=== PATIENT | female | born 1985 | race Caucasian/White ===

== ENCOUNTER 2017-12-15 07:36 | Day surgery (SDC) | payer MEDICAID ==
[2017-12-15] MEDS ORDERED: LR 1,000 ML IV ONE (07:57)
[2017-12-15] MEDS ORDERED: LIDOCAINE 1% 2 ML INJ ID PRN (07:57)
[2017-12-15] MEDS ORDERED: POTASSIUM IODIDE/IODINE (LUGOL'S SOLN) 500 ML MISC ONE ×2 (08:00)
[2017-12-15] MEDS ORDERED: LIDOCAINE 1% 300 MG/30 ML SDV ONE (08:30)
[2017-12-15] MEDS ORDERED: MONSELS-FERRIC SUBSULFATE 8 GM SDV TP ONE (08:30)
[2017-12-15] MEDS ORDERED: VASOPRESSIN 20 UNIT/ML VIAL ONE (08:30)
[2017-12-15] MEDS ORDERED: SILVER NITRATE APPLICATOR 1 APPL TP ONE (08:30)
[2017-12-15] MEDS ORDERED: ACETIC ACID IRR SOLN 0.25% 1,000 ML BTL ONE (08:31)
--- NOTE | 2017-12-15 08:38 | GHP ---
[f rep st] HISTORY AND PHYSICAL DATE OF ADMISSION: 12/15/2017 ADMITTING DIAGNOSES: Cervical intraepithelial neoplasia 2, moderate dysplasia. HISTORY OF PRESENT ILLNESS: Patient is a 32-year-old nulliparous female, who presents with a history of cervical dysplasia. She had an abnormal Pap smear showing ASCUS, high-risk HPV in July 2017. She then underwent a LEEP in October 2016 that showed JAIDA 2. Patient does have a history of a LEEP in 2006 at 20 years of age. She states followup Paps were normal. She is in a monogamous relationship. Denies any tobacco use. She is unsure if she wants children at this time. PAST OBSTETRIC HISTORY: Patient is nulliparous. PAST GYNECOLOGIC HISTORY: Age of menarche is 16. Cycles are every 25-30 days for 3-5 days. Light flow with heavy cramping. Patient does have a history of abnormal Pap smears, high-risk HPV, dysplasia with a LEEP in 2006. Patient did not receive Gardasil HPV vaccine. Denies exposure to any other sexually transmitted diseases. Currently using condoms, has used control pills and IUD in the past. PAST MEDICAL HISTORY: Asthma, Hipolito's, eczema, depression, anxiety. CURRENT MEDICATIONS: Adderall, Ativan, Ibuprofen, Synthroid 50 mcg, Xanax, and cyclobenzaprine as needed. ALLERGIES: Desflurane. PAST SURGICAL HISTORY: Includes a LEEP in 2006; Tonsillectomy and Adenoidectomy in 2003; Sinus surgery for deviated septum in 2014. FAMILY HISTORY: Mother and great grandmother with mental illness. Father and sister with thyroid disease. Maternal uncle had colon cancer in the 40s. Father with heart disease. SOCIAL HISTORY: The patient is in a monogamous relationship, lives with her fiancee. Denies any tobacco use. She drinks socially 3-5 drinks per week. Denies any illicit drug use. 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 REVIEW OF SYSTEMS: Ten-point review of systems negative. Pertinent positives noted in HPI. PHYSICAL EXAMINATION: On admission: VITAL SIGNS: Stable. Patient is afebrile. GENERAL: Well-nourished, well-developed female, alert and oriented x3. CARDIOVASCULAR: Regular rate and rhythm. LUNGS: Clear to auscultation bilaterally. PELVIC: Exam deferred. EXTREMITIES: Normal to inspection without calf tenderness. ASSESSMENT: Patient is a 32-year-old nulliparous female with history of dysplasia and loop electrical cautery excision of cervix, who presents with moderate dysplasia, cervical intraepithelial neoplasia 2. PLAN: 1. Discussed the procedure LEEP (loop electrical cautery excision of the cervix ). We discussed its limitations, nothing by mouth status, postop recovery including pelvic rest times 4 weeks. 2. Surgical consents were obtained. We discussed risks, benefits, alternatives including, but not limited to, bleeding, infection, risk of cervical stenosis, damage to surrounding organs including the vagina. 3. Patient understands all risks and wants to proceed with surgery at this time. 4. Antibiotics chronometer tester to operating room. 5. Sequential compression devices for deep vein thrombosis prophylaxis. /[id number]/MODL MTDD
--- NOTE | 2017-12-15 09:06 | PDANEPAE ---
ANE Past Medical History - Cardiovascular History Hx Hypertension: No Hx Arrhythmias: No Hx Chest Pain: No Hx Coronary Artery / Peripheral Vascular Disease: No Hx CHF / Valvular Disease: No Hx Palpitations: No - Pulmonary History Hx COPD: No Hx Asthma/Reactive Airway Disease: Yes Hx Recent Upper Respiratory Infection: No Hx Oxygen in Use at Home: No Hx Sleep Apnea: No Sleep Apnea Screening Result - Last Documented: Negative Pulmonary History Comment: MILD ASTHMA W/INHALER - Neurologic History Hx Cerebrovascular Accident: No Hx Seizures: No Hx Dementia: No - Endocrine History Hx Diabetes: Yes Hypothyroid: Yes Endocrine History Comment: ADRIAN'S - Renal History Hx Renal Disorders: No - Liver History Hx Hepatic Disorders: No - Neurological & Psychiatric Hx Hx Neurological and Psychiatric Disorders: Yes Neurological / Psychiatric History Comment: ADD/ADHD. ANXIETY - Cancer History Hx Cancer: No - Congenital Disorder History Hx Congenital Disorders: No - GI History Hx Gastrointestinal Disorders: No - Other Health History Other Health History: OCCAS ECZEMA - Chronic Pain History Chronic Pain: No - Surgical History Prior Surgeries: SINUS SURG. TONSILLECTOMY & ADENOIDECTOMY. PREVIOUS LEEP PROCEDURE 2005 ANE Review of Systems Review of Systems: - Exercise capacity METS (RN): 5 METS ANE Patient History - Allergies Allergies/Adverse Reactions: desflurane Allergy (Verified 12/08/17 17:22) Anaphylaxis - Home Medications Home Medications: Adderall 10 MG (*) 12/08/17 [Last Taken 12/13/17] Flexeril 10 MG (*) 12/08/17 [Last Taken 12/10/17] Herbals/Supplements -Info Only 12/08/17 [Last Taken 12/10/17] Ibuprofen 12/08/17 [Last Taken 2 Weeks Ago ~12/01/17] Synthroid 12/08/17 [Last Taken 12/15/17] Xanax 12/08/17 [Last Taken 3 Weeks Ago ~11/24/17] - NPO status NPO Since - Liquids (Date): 12/15/17 NPO Since - Liquids (Time): 07:00 NPO Since - Solids (Date): 12/14/17 NPO Since - Solids (Time): 23:30 - Smoking Hx Smoking Status: Never smoked - Family Anes Hx Family Hx Anesthesia Complications: NEG ANE Labs/Vital Signs - Vital Signs Blood Pressure: 97/60 Heart Rate: 61 Respiratory Rate: 18 O2 Sat (%): 96 Height: 172.72 cm Weight: 72.575 kg ANE Physical Exam - Airway Mallampati Score: Class 1 - ASA Status ASA Status: II ANE Anesthesia Plan Anesthesia Plan: GA w LMA Total IV Anesthesia: Yes
[2017-12-15] MEDS ORDERED: fentaNYL 100 MCG/2 ML INJ ONE ×2 (09:14→11:13)
[2017-12-15] MEDS ORDERED: MIDAZOLAM 2 MG/2 ML VIAL ONE (09:14)
[2017-12-15] MEDS ORDERED: PROPOFOL/EMULSION 500 MG/50 ML BOTTLE IV ONE (09:15)
[2017-12-15] MEDS ORDERED: PROPOFOL 200 MG/20 ML VIAL ONE (09:15)
[2017-12-15] MEDS ORDERED: ceFAZolin 2 GM/SWFI 2 GM/20 ML SYR IVP ONE (09:16)
[2017-12-15] MEDS ORDERED: ONDANSETRON 4 MG/2 ML VIAL ONE (09:46)
[2017-12-15] MEDS ORDERED: ceFAZolin 1 GM VIAL ONE ×2 (09:46)
[2017-12-15] MEDS ORDERED: METOCLOPRAMIDE 10 MG/2 ML VIAL ONE (09:47)
[2017-12-15] MEDS ORDERED: LIDOCAINE 2% JELLY 5 ML TUBE ONE (09:47)
[2017-12-15] MEDS ORDERED: KETOROLAC 30 MG/1 ML SDV ONE (09:56)
--- NOTE | 2017-12-15 10:04 | POSTOPPROG ---
Post Op Note Date of Operation: 12/15/17 Surgeon: Tila Gomez Rooms Director: None Anesthesiologist: Irvin Dunn Anesthesia: GET(General Endotracheal) Pre-op Diagnosis: JAIDA II-moderate dysplasia Post-op Diagnosis: JAIDA II-moderate dysplasia Indication: Pt is 32 y/o nulliparous with h/o cervical dysplasia and now JAIDA II Procedure: LEEP Findings: BME-normal size uterus, adnexa wnl; Lugol's with uptake at 6-7 o'clock Inf/Abcess present in the surg proc area at time of surgery?: No Depth: Organ Space EBL: Minimal (2cc) Total fluids administered: 400 cc Complications: None Specimen(s): Ectocervix
[2017-12-15] MEDS ORDERED: HYDROCODONE/APAP 5/325 TAB PO PRN (10:06)
[2017-12-15] MEDS ORDERED: NALOXONE HCL 0.4 MG/ML INJ IVP PRN (10:08)
[2017-12-15] MEDS ORDERED: fentaNYL 100 MCG/2 ML INJ IVP PRN (10:08)
[2017-12-15] MEDS ORDERED: LR 500 ML IV PRN (10:08)
[2017-12-15] MEDS ORDERED: ALBUTEROL 3 ML DEYVIAL IH PRN (10:08)
[2017-12-15] MEDS ORDERED: PROMETHAZINE HCL 25 MG/ML INJ IVP PRN (10:08)
--- NOTE | 2017-12-15 10:09 | POSTANESTH ---
Post Anesthetic Evaluation Cardiovascular Status: Normal, Stable Respiratory Status: Normal, Stable Level of Consciousness/Mental Status: Can Participate in Eval Pain Control: Adequate, Prn Tx Ordered Nausea/Vomiting Control: Adequate, Prn Tx Ordered Complications Possibly Related to Anesthesia: None Noted
[2017-12-15] MEDS ORDERED: HYDROCODONE/APAP 5/325 TAB ONE (11:09)
[2017-12-15 11:22] VITALS: PULSE 53
[2017-12-15 12:32] VITALS: BP 103/61; RESP 16; TEMP 97.5; O2SAT 96
--- NOTE | 2017-12-15 13:49 | GOP ---
[f rep st] OPERATIVE REPORT DATE OF OPERATION: 12/15/2017 SURGEON: Tila Gomez DO CATTLE KNOCKER: None. ANESTHESIA: General endotracheal. ANESTHESIOLOGIST: Irvin Dunn MD. PREOPERATIVE DIAGNOSIS: JAIDA 2, moderate dysplasia. POSTOPERATIVE DIAGNOSIS: JAIDA 2, moderate dysplasia. PROCEDURE PERFORMED: Loop electrosurgical excisional excision procedure FINDINGS: Bimanual exam revealed normal-sized uterus. No adnexal masses palpated. The cervix did not appear to have any gross masses or lesions. Lugol 's solution did reveal areas of non uptake around 6/7 o'clock. SPECIMENS: Ectocervix. ESTIMATED BLOOD LOSS: Minimal, less than 2 cc. INDICATIONS: Patient is a 32-year-old nulliparous who presents with a history of cervical dysplasia treated with LEEP in 2006, who presents to my office with abnormal Pap smear in July showing ASCUS, high-risk HPV and had a colposcopy in October that revealed JAIDA 2, moderate dysplasia. The patient understands and agrees with the plan to proceed with an excisional procedure, for both diagnostic and curative purposes. Discussed risks of the surgery including but not limited to bleeding, infection, cervical stenosis and damage to surrounding organs, vagina. Pt understands all risks of the procedure and wants to proceed with surgery at this time. DESCRIPTION OF PROCEDURE: The patient was taken to the operating room where she was placed under general anesthesia without difficulty. She was then prepped and draped in the usual sterile fashion and placed in dorsal lithotomy position. A preoperative bimanual examination revealed findings noted above. Patient did empty her bladder prior to the procedure. At this time, a large insulated Graves speculum was placed in the vagina. The anterior lip of the cervix was grasped with a single-tooth tenaculum. Lugols solution was painted along the entire cervix. Areas of non uptake were noted to be around 6/7 o'clock position. Approximately 10 mL of diluted vasopressin was injected circumferentially along the cervix. A 20 mm x 10 mm loop electrode was used to remove the anterior portion of the cervix, especially the areas of non uptake. This was done in 1 pass along the cervix. The specimen was passed off and sent to Pathology. The cervical bed was then cauterized with rollerball. Monsel's was applied and hemostasis was noted. All instruments were removed from the vagina. The patient tolerated the procedure well. No complications. All instruments and sponge counts correct x2. The patient was then awakened, taken out of dorsal lithotomy position and taken to the recovery room in stable condition. IV FLUIDS: 400 cc of LR. /[id number]/MODL MTDD
== END 2017-12-15 12:25 | disposition home or self-care (01) ==
LOC: FSGY 07:36
PROVIDERS: ATTEND Obstetrics & Gynecology
PROC: 0UBC7ZZ Excision of Cervix, Via Natural or Artificial Opening (ICD-10-PCS; principal; 2017-12-15 09:30)
DX: N87.1 Moderate cervical dysplasia (principal); E06.3 Autoimmune thyroiditis; Z87.410 Personal history of cervical dysplasia
CPT/HCPCS: J0690; J1885; J2250; J2405; J2704; J2765; J3010

== ENCOUNTER 2018-03-20 16:26 | Emergency (ER) | payer MEDICAID ==
[2018-03-20 16:31] VITALS: BP 134/67
--- NOTE | 2018-03-20 17:06 | EDPHY ---
H & P Stated Complaint: Left upper tooth pain x 3 days Time Seen by Provider: 03/20/18 16:36 HPI/ROS: CHIEF COMPLAINT: Toothache HISTORY OF PRESENT ILLNESS: This is a 33-year-old female who presents with toothache. She saw her dentist, Dr. Pack, in [place] 2 days ago was diagnosed with a dental abscess in a tooth that had had a prior root canal. As a result, he is unable to treat this problem and will be referring her to a specialist. She is expecting a call tomorrow with that referral. He started her on amoxicillin four times daily and advised her to alternate Motrin and Tylenol. He also provided a prescription for 6 Olmstead, which she has taken. They have provided pain relief but she is having some nausea with them. She is here because of continued pain. She has not had fever. She has a mild global headache. REVIEW OF SYSTEMS: No recent fever, cough, shortness of breath, chest pain, abdominal pain, vomiting, constipation. Past medical history: 1. Hypothyroid 2. PTSD Social history: No tobacco use. Her primary care provider is at [facility]. General Appearance: Alert. Vital signs reviewed. A focused exam was performed. ENT, Mouth: Mucous membranes are moist, no oropharyngeal erythema or edema. Dentition appears to be in good repair. There is tenderness to percussion of tooth 14 (Upper left). Neck: No lymphadenopathy, supple. Respiratory: Lungs are clear to auscultation; no wheezes, rales, or rhonchi. Cardiovascular: Regular rate and rhythm; no murmur, rub, or gallop. Psychiatric: Normal affect. - Personal History LMP (Females 10-55): 1-7 Days Ago Current Tetanus/Diphtheria Vaccine: No Current Tetanus Diphtheria and Acellular Pertussis (TDAP): No - Medical/Surgical History Hx Asthma: No Hx Chronic Respiratory Disease: No Hx Diabetes: No Hx Cardiac Disease: No Hx Renal Disease: No Hx Cirrhosis: No Hx Alcoholism: No Hx HIV/AIDS: No Hx Splenectomy or Spleen Trauma: No Other PMH: nathalie. ADD. anxiety depression - Social History Smoking Status: Never smoked Constitutional: Initial Vital Signs Temperature (C) 37.0 C 03/20/18 16:29 Heart Rate 82 03/20/18 16:29 Respiratory Rate 18 03/20/18 16:29 Blood Pressure 134/67 H 03/20/18 16:29 O2 Sat (%) 97 03/20/18 16:29 O2 Delivery Mode Room Air Allergies/Adverse Reactions: desflurane Allergy (Verified 03/21/18 19:50) Anaphylaxis Home Medications: Medication Instructions Recorded Adderall 10 MG (*) 12/08/17 Flexeril 10 MG (*) 12/08/17 Herbals/Supplements -Info Only 12/08/17 Ibuprofen 12/08/17 Synthroid 12/08/17 Xanax 12/08/17 oxyCODONE/APAP 5/325 [Percocet 1 - 2 tab PO Q4H PRN #10 tab 03/20/18 5/325 (RX)] Ondansetron Odt [Zofran Odt] 4 mg PO Q4PRN PRN #20 tab 03/21/18 Medical Decision Making ED Course/Re-evaluation: Pain control for toothache. She is being followed by a dentist and is being referred to a specialist. PDMP consulted--verifying that she received six Olmstead from her dentist, as she stated. No other RXs have been filled for opiates. She is given RX for percocet, dispense ten. She understands that she will not receive another RX from ED. She is not febrile and does not appear systemically ill. No facial swelling. I do not suspect other infection, aside from dental abscess--such as Dwaine's angina, fascial plane infection. No sore throat. No respiratory difficulty. Departure - Departure Disposition: Home, Routine, Self-Care Clinical Impression: Toothache Condition: Good Instructions: Dental Abscess (ED) Additional Instructions: Follow up with the dental specialist as advised. As we discussed, you will not be able to receive another prescription for pain medication from the emergency department. Referrals: Farzana Nunez MD [Medical Doctor] - As per Instructions Prescriptions: oxyCODONE/APAP 5/325 [Percocet 5/325 (RX)] 1 - 2 tab PO Q4H PRN #10 tab PRN Reason: Pain, Severe
== END 2018-03-20 17:20 | disposition home or self-care (01) ==
DX: G89.18 Other acute postprocedural pain (principal); K08.89 Other specified disorders of teeth and supporting structures

== ENCOUNTER 2018-03-21 19:37 | Emergency (ER) | payer MEDICAID ==
--- NOTE | 2018-03-21 19:53 | EDPHY ---
H & P Stated Complaint: c/o abd cramping/some nausea x 1-2 hrs, taking abx - thinks related Time Seen by Provider: 03/21/18 19:52 HPI/ROS: CHIEF COMPLAINT: Abdominal pain, nausea HISTORY OF PRESENT ILLNESS: The patient presents the ED with progressively worsening abdominal pain over the past 36 hr. The patient reports nausea but denies vomiting or diarrhea. She is currently taking codeine and amoxicillin for a dental infection. She has been on these medications for the past 3 days. The patient denies any dysuria or back pain. She denies fever or vaginal discharge. The patient reports pain that is moderate in nature. The patient denies prior history of abdominal surgery. She denies additional significant past medical history. REVIEW OF SYSTEMS: A comprehensive 10 point review of systems is otherwise negative aside from elements mentioned in the history of present illness. Source: Patient - Medical/Surgical History Hx Asthma: No Hx Chronic Respiratory Disease: No Hx Diabetes: No Hx Cardiac Disease: No Hx Renal Disease: No Hx Cirrhosis: No Hx Alcoholism: No Hx HIV/AIDS: No Hx Splenectomy or Spleen Trauma: No Other PMH: nathalie,ADD,anxiety/depression, tmj, hypothyroid, tonsill/ adenoidectomy, sinus surg - Social History Smoking Status: Never smoked - Physical Exam Exam: General Appearance: Alert, no distress Eyes: Pupils equal and round no pallor or injection ENT, Mouth: Mucous membranes moist Respiratory: There are no retractions, lungs are clear to auscultation Cardiovascular: Regular rate and rhythm Gastrointestinal: Tenderness to palpation in the right lower quadrant Neurological: 5/5 strength bilateral lower extremities Skin: Warm and dry, no rashes Musculoskeletal: Neck is supple nontender Extremities: symmetrical, full range of motion Constitutional: Initial Vital Signs Temperature (C) 36.7 C 03/21/18 19:45 Heart Rate 74 03/21/18 19:45 Respiratory Rate 16 03/21/18 19:45 Blood Pressure 118/81 H 03/21/18 19:45 O2 Sat (%) 96 03/21/18 19:45 O2 Delivery Mode Room Air Allergies/Adverse Reactions: desflurane Allergy (Verified 03/21/18 19:50) Anaphylaxis Home Medications: Medication Instructions Recorded Adderall 10 MG (*) 12/08/17 Flexeril 10 MG (*) 12/08/17 Herbals/Supplements -Info Only 12/08/17 Ibuprofen 12/08/17 Synthroid 12/08/17 Xanax 12/08/17 oxyCODONE/APAP 5/325 [Percocet 1 - 2 tab PO Q4H PRN #10 tab 03/20/18 5/325 (RX)] Medical Decision Making ED Course/Re-evaluation: The patient presents to the ED with abdominal pain or nausea in the setting of recent antibiotic use and narcotics for a dental infection. The patient was noted to have some mild right lower quadrant tenderness and right mid quadrant tenderness. Ultrasound demonstrates no evidence of acute appendicitis. The patient's urinalysis demonstrates no evidence of infection. She has new leukocytosis or metabolic abnormality. The patient had an IV established. She received IV Zofran and Toradol. She was given a GI cocktail. The patient had serial examinations in the ED over a 2 hr period. I re- evaluated the patient at 10:00 p.m.. Her right lower quadrant tenderness has improved. She has no ongoing reproducible tenderness in that area. I do not feel that workup for ovarian pathology is currently indicated based upon her clinical exam. The patient will be discharged home with instructions to continue her regular medications. She is also given a prescription for Zofran. She is advised to use Maalox and ranitidine for management of her symptoms. The patient is given customary abdominal pain discharge instructions and return precautions. Differential Diagnosis: Differential diagnosis considered includes appendicitis, gastroenteritis, gastritis, medication side effect, ectopic , ovarian torsion - Data Points Laboratory Results: Laboratory Results 03/21/18 20:18 03/21/18 20:18 03/21/18 03/21/18 03/21/18 20:40 20:18 20:18 WBC RBC Hgb Hct MCV MCH MCHC RDW Plt Count MPV Neut % (Auto) Lymph % (Auto) [place] % (Auto) Eos % (Auto) Baso % (Auto) Nucleat RBC Rel Count Absolute Neuts (auto) Absolute Lymphs (auto) Absolute Monos (auto) Absolute Eos (auto) Absolute Basos (auto) Absolute Nucleated RBC Immature Gran % Immature Gran # Sodium 139 mEq/L mEq/L (135-145) Potassium 4.2 mEq/L mEq/L (3.3-5.0) Chloride 101 mEq/L mEq/L (97-110) Carbon Dioxide 28 mEq/l mEq/l (22-31) Anion Gap 10 mEq/L mEq/L (8-16) BUN 13 mg/dL mg/dL (7-23) Creatinine 0.8 mg/dL mg/dL (0.6-1.0) Estimated GFR > 60 Glucose 98 mg/dL mg/dL (70-100) Calcium 10.0 mg/dL mg/dL (8.5-10.4) Total Bilirubin 0.3 mg/dL mg/dL (0.1-1.4) Conjugated Bilirubin 0.1 mg/dL mg/dL (0.0-0.5) Unconjugated Bilirubin 0.2 mg/dL mg/dL (0.0-1.1) AST 23 IU/L IU/L (14-46) ALT 28 IU/L IU/L (9-52) Alkaline Phosphatase 65 IU/L IU/L (38-126) Total Protein 7.2 g/dL g/dL (6.3-8.2) Albumin 4.5 g/dL g/dL (3.5-5.0) Lipase 73 IU/L IU/L (23-300) Beta HCG, Qual NEGATIVE Urine Color YELLOW Urine Appearance CLEAR Urine pH 9.0 H (5.0-7.5) Ur Specific [place] 1.011 (1.002-1.030) Urine Protein NEGATIVE (NEGATIVE) Urine Ketones NEGATIVE (NEGATIVE) Urine Blood NEGATIVE (NEGATIVE) Urine Nitrate NEGATIVE (NEGATIVE) Urine Bilirubin NEGATIVE (NEGATIVE) Urine Urobilinogen NEGATIVE EU EU (0.2-1.0) Ur Leukocyte Esterase NEGATIVE (NEGATIVE) Urine Glucose NEGATIVE (NEGATIVE) 03/21/18 20:18 WBC 8.29 10^3/uL 10^3/uL (3.80-9.50) RBC 4.51 10^6/uL 10^6/uL (4.18-5.33) Hgb 14.2 g/dL g/dL (12.6-16.3) Hct 40.6 % % (38.0-47.0) MCV 90.0 fL fL (81.5-99.8) MCH 31.5 pg pg (27.9-34.1) MCHC 35.0 g/dL g/dL (32.4-36.7) RDW 12.0 % % (11.5-15.2) Plt Count 285 10^3/uL 10^3/uL (150-400) MPV 10.0 fL fL (8.7-11.7) Neut % (Auto) 70.4 % % (39.3-74.2) Lymph % (Auto) 22.8 % % (15.0-45.0) [place] % (Auto) 5.1 % % (4.5-13.0) Eos % (Auto) 1.3 % % (0.6-7.6) Baso % (Auto) 0.2 % L % (0.3-1.7) Nucleat RBC Rel Count 0.0 % % (0.0-0.2) Absolute Neuts (auto) 5.83 10^3/uL 10^3/uL (1.70-6.50) Absolute Lymphs (auto) 1.89 10^3/uL 10^3/uL (1.00-3.00) Absolute Monos (auto) 0.42 10^3/uL 10^3/uL (0.30-0.80) Absolute Eos (auto) 0.11 10^3/uL 10^3/uL (0.03-0.40) Absolute Basos (auto) 0.02 10^3/uL 10^3/uL (0.02-0.10) Absolute Nucleated RBC 0.00 10^3/uL 10^3/uL (0-0.01) Immature Gran % 0.2 % % (0.0-1.1) Immature Gran # 0.02 10^3/uL 10^3/uL (0.00-0.10) Sodium Potassium Chloride Carbon Dioxide Anion Gap BUN Creatinine Estimated GFR Glucose Calcium Total Bilirubin Conjugated Bilirubin Unconjugated Bilirubin AST ALT Alkaline Phosphatase Total Protein Albumin Lipase Beta HCG, Qual Urine Color Urine Appearance Urine pH Ur Specific [place] Urine Protein Urine Ketones Urine Blood Urine Nitrate Urine Bilirubin Urine Urobilinogen Ur Leukocyte Esterase Urine Glucose Medications Given: Discontinued Medications Ketorolac Tromethamine (Toradol) 15 mg IVP EDNOW ONE Stop: 03/21/18 21:30 Last Admin: 03/21/18 21:39 Dose: 15 mg Ondansetron HCl (Zofran) 4 mg IVP EDNOW ONE Stop: 03/21/18 21:31 Last Admin: 03/21/18 21:39 Dose: 4 mg Departure - Departure Disposition: Home, Routine, Self-Care Clinical Impression: Abdominal pain Condition: Good Instructions: Acute Abdominal Pain (ED) Additional Instructions: Sometimes we are unable to diagnose an obvious cause of abdominal pain in the Emergency Department. Based upon our evaluation today, I believe your symptoms are secondary to the antibiotics and pain medications you are taking. Because more serious conditions can be difficult to diagnose early in the course of their presentation, we ask that you return to the Emergency Department in 8-12 hours for a recheck if you are still having pain. This is necessary to exclude the development of a more serious condition such as appendicitis or other intra- abdominal emergency. In the event your pain markedly increases before that time or you develop intractable vomiting or fever return to the Emergency Department immediately. Zofran as needed for nausea. I recommend using Zantac and Maalox for your mild intestinal discomfort. I do recommend taking antibiotics and pain medications with meals.
[2018-03-21 21:01] LABS: PLATELET COUNT 285 10^3/uL (150-400)
[2018-03-21] MEDS ORDERED: KETOROLAC 15 MG/1 ML SDV IVP ONE (21:29)
[2018-03-21] MEDS ORDERED: ONDANSETRON 4 MG/2 ML VIAL IVP ONE (21:30)
[2018-03-21] MEDS ORDERED: MAG HYDROX/AL HYDROX/SIMETH 30 ML UDCUP ONE (21:48)
[2018-03-21] MEDS ORDERED: LIDOCAINE 2% VISCOUS 15 ML UDCUP ONE (21:48)
[2018-03-21] MEDS ORDERED: ONDANSETRON 4MG PREPACK#2 BTL TAKEHOME ONE (21:50)
[2018-03-21] MEDS ORDERED: MAG HYDROX/AL HYDROX/SIMETH 30 ML UDCUP PO ONE (21:50)
[2018-03-21] MEDS ORDERED: LIDOCAINE 2% VISCOUS 15 ML UDCUP PO ONE (21:50)
[2018-03-21 22:04] VITALS: BP 118/80
== END 2018-03-21 22:05 | disposition home or self-care (01) ==
DX: R10.31 Right lower quadrant pain (principal)
CPT/HCPCS: 96374; J1885; J2405